=== PATIENT | male | born 1970 | race Caucasian/White ===

== ENCOUNTER 2022-04-28 19:48 | Inpatient (IN) | payer BC ==
--- NOTE | 2022-04-28 20:21 | ERPHSYRPT ---
- History of Present Illness Time Seen by Provider: 04/28/22 20:21 Source: patient Exam Limitations: no limitations Physician History: This is a 52-year-old left-handed white male who was wrestling with one of his children 2 and half weeks ago and there was definitely some right elbow rug burn wall slater while wrestling. Over the last 2 and half weeks the symptoms of redness swelling and tenderness have increased. In the last for 5 days it increased even to a greater extent and patient sought medical evaluation in an outpatient clinic. Patient was started on Bactrim DS yesterday. He is taken a total of 3 oral doses of Bactrim DS. Despite that treatment, the redness, swelling and tenderness is worsening. Patient has a history of arthritis, DJD and gastroesophageal reflux disease. Timing/Duration: week(s) (2-1/2 weeks) Quality: painful Severity: moderate Location: extremities (Right elbow) Possible Causes: other (Cellulitis) Allergies/Adverse Reactions: No Known Drug Allergies Allergy (Verified 04/28/22 20:23) Home Medications: Tamsulosin HCl 0.4 mg [Flomax 0.4 MG] 0.4 mg PO HS 08/31/15 [History] Gabapentin 600 mg PO HS 04/28/22 [History] Ibuprofen 600 mg PO TID 04/28/22 [History] Sulfamethoxazole/Trimethoprim [Sulfamethoxazole-Tmp Ds Tablet] 1 each PO Q12H 04/28/22 [History] Travel Risk - International Travel Have you traveled outside of the country in past 3 weeks: No - Coronavirus Screening Are you exhibiting any of the following symptoms?: No Close contact with a COVID-19 positive Pt in past 14-21 Days: No - Review of Systems Constitutional: Fever (Low-grade fever) Eyes: No Symptoms Ears, Nose, & Throat: No Symptoms Respiratory: No Symptoms Cardiac: No Symptoms Abdominal/Gastrointestinal: No Symptoms Genitourinary Symptoms: No Symptoms Musculoskeletal: No Symptoms Skin: Cellulitis (Right elbow) Neurological: No Symptoms Psychological: No Symptoms Endocrine: No Symptoms Hematologic/Lymphatic: No Symptoms Immunological/Allergic: No Symptoms All Other Systems: Reviewed and Negative - Past Medical History Pertinent Past Medical History: Yes Neurological History: No Pertinent History ENT History: No Pertinent History Cardiac History: No Pertinent History Respiratory History: No Pertinent History Endocrine Medical History: No Pertinent History Musculoskeletal History: Arthritis, Degenerative Disk Disease GI Medical History: GERD History: No Pertinent History Psycho-Social History: No Pertinent History Male Reproductive Disorders: Prostate Problems Other Medical History: pt reports he was kicked by a horse in the left side 30 years ago and damaged his left kidney has not been aware of any [facility] problems - Past Surgical History Past Surgical History: Yes Neuro Surgical History: No Pertinent History Cardiac: No Pertinent History Respiratory: No Pertinent History Gastrointestinal: No Pertinent History Genitourinary: No Pertinent History Musculoskeletal: No Pertinent History Male Surgical History: No Pertinent History Other Surgical History: COLONOSCOPY - Social History Smoking Status: Former smoker Exposure to second hand smoke: No Drug Use: none - Nursing Vital Signs Nursing Vital Signs: Initial Vital Signs Temperature 99.4 F 04/28/22 20:07 Pulse Rate 111 H 04/28/22 20:07 Respiratory Rate 20 04/28/22 20:07 Blood Pressure 121/81 04/28/22 20:07 O2 Sat by Pulse Oximetry 97 04/28/22 20:07 Pain Scale Pain Intensity 10 - Physical Exam General Appearance: no apparent distress, alert, anxiety Eye Exam: PERRL/EOMI, eyes nml inspection Ears, Nose, Throat Exam: normal ENT inspection, moist mucous membranes Neck Exam: normal inspection, non-tender, supple, full range of motion Respiratory Exam: airway intact, No chest tenderness, No respiratory distress Cardiovascular Exam: tachycardia Gastrointestinal/Abdomen Exam: No tenderness Rectal Exam: not done Back Exam: normal inspection, normal range of motion, No CVA tenderness, No vertebral tenderness Extremity Exam: inflammation, limited range of motion, swelling (Right elbow), tenderness (Right elbow right elbow), other (There is proximal streaking of redness proximally. 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, normal mood/affect, nml cerebellar function, nml station & gait, sensation nml Skin Exam: dry, other (Cellulitis right elbow) Lymphatic Exam: adenopathy, axilla node tender (R) SpO2 Interpretation: normal O2 Delivery: Room Air - Course Nursing assessment & vital signs reviewed: Yes Ordered Tests: Active Orders 24 hr Category Date Time Status IV Insertion STAT Care 04/28/22 20:46 Active BLOOD CULTURE Stat Lab 04/28/22 21:02 Received CBC W DIFF Stat Lab 04/28/22 20:56 Completed CMP Stat Lab 04/28/22 20:56 Completed CULTURE,WOUND Stat Lab 04/28/22 20:21 Received Lactic Acid Stat Lab 04/28/22 20:53 Completed Transfer Order Routine Transfer 04/28/22 Ordered Medication Summary Generic Name Dose Route Start Last Admin Trade Name Greg PRN Reason Stop Dose Admin Sodium Chloride 1,000 mls @ 999 mls/hr 04/28/22 20:46 04/28/22 21:03 Sodium Chloride 0.9% 1000 Ml IV 04/28/22 21:46 999 mls/hr .Q1H1M STA Administration Levofloxacin/Dextrose 750 mg in 150 mls @ 100 mls/hr 04/28/22 20:46 04/28/22 21:05 Levofloxacin 750mg/150ml D5w IV 04/28/22 22:15 100 mls/hr STAT STA 100 mls/hr Administration Discontinued Medications Generic Name Dose Route Start Last Admin Trade Name Greg PRN Reason Stop Dose Admin Hydromorphone HCl 1 mg 04/28/22 20:46 04/28/22 21:05 Hydromorphone 1 Mg/1ml Inj 1 Mg/Ml Syringe IV 04/28/22 20:47 1 mg STAT ONE Administration Hydromorphone HCl Confirm 04/28/22 20:59 Hydromorphone 1 Mg/1ml Inj 1 Mg/Ml Syringe Administered 04/28/22 21:00 Dose 1 mg .ROUTE .STK-MED ONE Sodium Chloride Confirm 04/28/22 20:59 Sodium Chloride 0.9% 1000 Ml Administered 04/28/22 21:00 Dose 1,000 mls @ ud .ROUTE .STK-MED ONE Levofloxacin/Dextrose Confirm 04/28/22 20:59 Levofloxacin 750mg/150ml D5w Administered 04/28/22 21:00 Dose 750 mg in 150 mls @ ud IV .STK-MED ONE Ondansetron HCl 4 mg 04/28/22 20:46 04/28/22 21:02 Ondansetron Hcl 4 Mg/2 Ml Vial IV 04/28/22 20:47 4 mg STAT STA Administration Ondansetron HCl 4 mg 04/28/22 20:46 04/28/22 20:50 Ondansetron Hcl 4 Mg/2 Ml Vial IV 04/28/22 20:47 Not Given STAT ONE Ondansetron HCl Confirm 04/28/22 20:58 Ondansetron Hcl 4 Mg/2 Ml Vial Administered 04/28/22 20:59 Dose 4 mg .ROUTE .STK-MED ONE Lab/Rad Data: Laboratory Result Diagrams 04/28/22 20:56 04/28/22 20:56 Laboratory Results 04/28/22 04/28/22 04/28/22 Range/Units 20:56 20:56 20:53 WBC 13.3 H (4.0-10.5) x10^3/uL RBC 4.55 (4.1-5.6) x10^6/uL Hgb 13.5 (12.5-18.0) g/dL Hct 40.3 L (42-50) % MCV 88.6 (78-100) fL MCH 29.7 (26-32) pg MCHC 33.5 (32-36) g/dL RDW 13.1 (11.5-14.0) % Plt Count 359 (150-450) x10^3/uL MPV 8.6 (7.5-11.0) fL Gran % 70.8 H (36.0-66.0) % Immature Gran % (Auto) 0.7 H (0.00-0.4) % Nucleat RBC Rel Count 0.0 (0.00-0.1) % Eos # (Auto) 0.25 (0-0.5) x10^3/uL Immature Gran # (Auto) 0.09 H (0.00-0.03) x10^3u/L Absolute Lymphs (auto) 2.35 (1.0-4.6) x10^3/uL Absolute Monos (auto) 1.19 (0.0-1.3) x10^3/uL Absolute Nucleated RBC 0.00 (0.00-0.01) x10^3u/L Lymphocytes % 17.6 L (24.0-44.0) % Monocytes % 8.9 (0.0-12.0) % Eosinophils % 1.9 (0.00-5.0) % Basophils % 0.1 (0.0-0.4) % Absolute Granulocytes 9.44 H (1.4-6.9) x10^3/uL Basophils # 0.02 (0-0.4) x10^3/uL Sodium 138 (137-145) mmol/L Potassium 4.0 (3.5-5.1) mmol/L Chloride 108 H (98-107) mmol/L Carbon Dioxide 21 L (22-30) mmol/L Anion Gap 12.8 (5-15) MEQ/L BUN 16 (9-20) mg/dL Creatinine 0.88 (0.66-1.25) mg/dL Estimated GFR > 60.0 ML/MIN Glucose 134 H (74-106) mg/dL Lactic Acid 1.0 (0.4-2.0) Calcium 8.7 (8.4-10.2) mg/dL Total Bilirubin 0.50 (0.2-1.3) mg/dL AST 31 (17-59) U/L ALT 27 (0-50) U/L Alkaline Phosphatase 79 (38-126) U/L Serum Total Protein 6.9 (6.3-8.2) g/dL Albumin 4.0 (3.5-5.0) g/dL - Progress Progress: unchanged Progress Note: 04/28/22 21:02 Medical decision making: This patient obviously has failed outpatient medical therapy. He has been on antibiotics. His symptoms are worsening. Patient needs intravenous access with intravenous antibiotics. The plan is to place him in observation and provide him with pain control, intravenous antibiotics and obtain a general surgical consultation. Once we have his laboratory results return, we will contact Dr. Aguayo Discussed with .: Bronson Counseled pt/family regarding: lab results, diagnosis, need for follow-up, rad results - Departure Departure Disposition: Observation Clinical Impression: Cellulitis of right elbow Condition: Stable Critical Care Time: No Referrals: SALINA GARCIAS [Primary Care Provider] - Follow up/PCP as directed
[2022-04-28] MEDS ORDERED: LEVOFLOXACIN 750MG/150ML D5W 750 MG/150 ML BAG IV STA (20:46)
[2022-04-28] MEDS ORDERED: Zofran 4 MG/2 ML VIAL IV STA (20:46)
[2022-04-28] MEDS ORDERED: Sodium Chloride 0.9% 1000 ML 1,000 ML IV STA (20:46)
[2022-04-28] MEDS ORDERED: Hydromorphone 1 mg/ml Injection IV ONE (20:46)
[2022-04-28] MEDS ORDERED: Zofran 4 MG/2 ML VIAL IV ONE (20:46)
[2022-04-28] MEDS ORDERED: Zofran 4 MG/2 ML VIAL ONE (20:58)
[2022-04-28 20:59] LABS: Absolute Neutrophil Ct (ANC) 9.44 x10^3/uL (1.4-6.9); Basophil (Absolute #) 0.02 x10^3/uL (0-0.4); Eosinophil % 1.9 % (0.00-5.0); Eosinophil (Absolute #) 0.25 x10^3/uL (0-0.5); Hematocrit 40.3 % (42-50); Hemoglobin 13.5 g/dL (12.5-18.0); Lymphocyte (Absolute #) 2.35 x10^3/uL (1.0-4.6); Lymphocytes % 17.6 % (24.0-44.0); Mean Cell Volume 88.6 fL (78-100); Mean Corpuscular Hemoglobin 29.7 pg (26-32); Mean Corpuscular Hgb Concent. 33.5 g/dL (32-36); Mean Platelet Volume 8.6 fL (7.5-11.0); Monocyte (Absolute #) 1.19 x10^3/uL (0.0-1.3); Monocytes % 8.9 % (0.0-12.0); Neutrophil % 70.8 % (36.0-66.0); Platelet Count 359 x10^3/uL (150-450); Red Blood Count 4.55 x10^6/uL (4.1-5.6); Red Cell Distribution Width 13.1 % (11.5-14.0); White Blood Count 13.3 x10^3/uL (4.0-10.5)
[2022-04-28] MEDS ORDERED: Hydromorphone 1 mg/ml Injection ONE (20:59)
[2022-04-28] MEDS ORDERED: LEVOFLOXACIN 750MG/150ML D5W 750 MG/150 ML BAG IV ONE (20:59)
[2022-04-28] MEDS ORDERED: Sodium Chloride 0.9% 1000 ML 1,000 ML ONE (20:59)
[2022-04-28 21:13] LABS: ALKALINE PHOSPHATASE 79 U/L (38-126); ANION GAP 12.8 MEQ/L (5-15); BLOOD UREA NITROGEN 16 mg/dL (9-20); CHLORIDE 108 mmol/L (98-107); Calcium 8.7 mg/dL (8.4-10.2); Carbon Dioxide 21 mmol/L (22-30); Creatinine 1 0.88 mg/dL (0.66-1.25); EST GLOMERULAR FILTRATION RATE > 60.0 ML/MIN; Glucose 134 mg/dL (74-106); SGOT/AST 31 U/L (17-59); SGPT/ALT 27 U/L (0-50); SODIUM 138 mmol/L (137-145); Total Protein 6.9 g/dL (6.3-8.2)
[2022-04-28 21:43] LABS: INFLUENZA A NEGATIVE (NEGATIVE); INFLUENZA B NEGATIVE (NEGATIVE); RESPIRATORY SYNCTIAL VIRUS NEGATIVE (Negative); SARS-CoV-2 Xpert Express NEGATIVE (NEGATIVE)
[2022-04-28] MEDS ORDERED: Zofran 4 MG/2 ML VIAL IV PRN (22:27)
[2022-04-28] MEDS ORDERED: TYLENOL 325 MG PO PRN (22:27)
[2022-04-28] MEDS: Sodium Chloride 0.9% 1000 ML 1,000 ML IV SCH (23:20)
[2022-04-29] MEDS ORDERED: NEURONTIN ONE (00:24)
[2022-04-29] MEDS ORDERED: Flomax 0.4 MG ONE (00:25)
[2022-04-29] MEDS: NEURONTIN PO SCH ×2 (00:26→22:44)
[2022-04-29] MEDS: Flomax 0.4 MG PO SCH ×2 (00:27→22:43)
[2022-04-29 06:46] LABS: Absolute Neutrophil Ct (ANC) 8.38 x10^3/uL (1.4-6.9); Basophil (Absolute #) 0.02 x10^3/uL (0-0.4); Eosinophil % 2.2 % (0.00-5.0); Eosinophil (Absolute #) 0.27 x10^3/uL (0-0.5); Hematocrit 39.6 % (42-50); Hemoglobin 13.2 g/dL (12.5-18.0); Lymphocyte (Absolute #) 2.36 x10^3/uL (1.0-4.6); Mean Cell Volume 88.8 fL (78-100); Mean Corpuscular Hemoglobin 29.6 pg (26-32); Mean Corpuscular Hgb Concent. 33.3 g/dL (32-36); Monocyte (Absolute #) 1.31 x10^3/uL (0.0-1.3); Monocytes % 10.6 % (0.0-12.0); Neutrophil % 67.5 % (36.0-66.0); Platelet Count 336 x10^3/uL (150-450); Red Blood Count 4.46 x10^6/uL (4.1-5.6); Red Cell Distribution Width 13.3 % (11.5-14.0); White Blood Count 12.4 x10^3/uL (4.0-10.5)
[2022-04-29 06:53] LABS: ALBUMIN 3.4 g/dL (3.5-5.0); ALKALINE PHOSPHATASE 78 U/L (38-126); ANION GAP 11.2 MEQ/L (5-15); BLOOD UREA NITROGEN 13 mg/dL (9-20); CHLORIDE 109 mmol/L (98-107); Calcium 8.2 mg/dL (8.4-10.2); Carbon Dioxide 20 mmol/L (22-30); Creatinine 1 0.74 mg/dL (0.66-1.25); EST GLOMERULAR FILTRATION RATE > 60.0 ML/MIN; Glucose 116 mg/dL (74-106); SGOT/AST 32 U/L (17-59); SGPT/ALT 30 U/L (0-50); SODIUM 136 mmol/L (137-145); Total Protein 6.3 g/dL (6.3-8.2)
[2022-04-29] MEDS: Hydromorphone 1 mg/ml Injection IV PRN (08:44)
[2022-04-29] MEDS: MOTRIN 600 MG PO SCH ×3 (08:45→22:44)
[2022-04-29] MEDS: Sodium Chloride 0.9% 1000 ML 1,000 ML IV SCH ×2 (08:47→18:23)
--- NOTE | 2022-04-29 08:48 | PCM.HP ---
History of Present Illness - Chief Complaint Chief Complaint: swelling of right elbow for 1 week History of Present Illness: is a 52 year old male.left-handed white male who was wrestling with one of his children 2 and half weeks ago and there was definitely some right elbow rug burn wall slater while wrestling. Over the last 2 and half weeks the symptoms of redness swelling and tenderness have increased. In the last for 5 days it increased even to a greater extent and patient sought medical evaluation in an outpatient clinic. Patient was started on Bactrim DS yesterday. He is taken a total of 3 oral doses of Bactrim DS. Despite that treatment, the redness, swelling and tenderness is worsening. Patient has a history of arthritis, DJD and gastroesophageal reflux disease. - Review of Systems Constitutional: No Fever, No Chills Eyes: No Symptoms Ears, Nose, & Throat: No Symptoms Respiratory: No Cough, No Short Of Breath Cardiac: No Chest Pain, No Edema, No Syncope Abdominal/Gastrointestinal: No Abdominal Pain, No Nausea, No Vomiting, No Diarrhea Genitourinary Symptoms: No Dysuria Musculoskeletal: Joint Redness (right elbow), Joint Swelling, No Back Pain, No Neck Pain Skin: Cellulitis (right elbow), No Rash Neurological: No Dizziness, No Focal Weakness, No Sensory Changes Psychological: No Symptoms Endocrine: No Symptoms Hematologic/Lymphatic: No Symptoms Immunological/Allergic: No Symptoms Medications & Allergies Home Medications: Home Medication List Tamsulosin HCl 0.4 mg [Flomax 0.4 MG] 0.4 mg PO HS 08/31/15 [History Confirmed 04/28/22] Gabapentin 600 mg PO HS 04/28/22 [History Confirmed 04/28/22] Ibuprofen 600 mg PO TID 04/28/22 [History Confirmed 04/28/22] Sulfamethoxazole/Trimethoprim [Sulfamethoxazole-Tmp Ds Tablet] 1 each PO Q12H 04/28/22 [History Confirmed 04/28/22] Allergies/Adverse Reactions: Allergies Allergy/AdvReac Type Severity Reaction Status Date / Time No Known Drug Allergies Allergy Verified 04/28/22 20:23 - Past Medical History Past Medical History: Yes Neurological History: No Pertinent History ENT History: No Pertinent History Cardiac History: Hypertension Respiratory History: No Pertinent History Endocrine Medical History: No Pertinent History Musculoskelatal History: Arthritis, Degenerative Disk Disease GI Medical History: GERD History: No Pertinent History Pyscho-Social History: No Pertinent History Male Reproductive Disorders: Prostate Problems Comment: pt reports he was kicked by a horse in the left side 30 years ago and damaged his left kidney has not been aware of any shelter problems - Past Surgical History Past Surgical History: Yes Neuro Surgical History: No Pertinent History Cardiac History: No Pertinent History Respiratory Surgery: No Pertinent History GI Surgical History: No Pertinent History, Cholecystectomy Genitourinary Surgical Hx: No Pertinent History Musculskeletal Surgical Hx: Orthopedic Surgery Male Surgical History: No Pertinent History Other Surgical History: COLONOSCOPY , broken collar bone years ago - Social History Smoking Status: Never smoker Exposure to second hand smoke: No Alcohol: None Drug Use: none - Physical Exam Vital Signs: Vital Signs - 24 hr Temp Pulse Resp BP Pulse Ox 04/29/22 07:05 98.0 F 93 H 16 146/74 97 04/29/22 04:00 98.2 F 100 H 18 130/77 97 04/28/22 22:56 98.6 F 108 H 18 135/74 98 04/28/22 22:34 98.3 F 113 H 18 125/74 97 04/28/22 20:07 99.4 F 111 H 20 121/81 97 General Appearance: no apparent distress, alert Neurologic Exam: alert, oriented x 3, cooperative, normal mood/affect, nml cerebellar function, nml station & gait, sensation nml, No motor deficits Eye Exam: PERRL/EOMI, eyes nml inspection Ears, Nose, Throat Exam: normal ENT inspection, TMs normal, pharynx normal, moist mucous membranes Neck Exam: normal inspection, non-tender, supple, full range of motion Respiratory Exam: normal breath sounds, lungs clear, No respiratory distress Cardiovascular Exam: regular rate/rhythm, normal heart sounds, normal peripheral pulses Gastrointestinal/Abdomen Exam: soft, normal bowel sounds, No tenderness, No mass Back Exam: normal inspection, normal range of motion, No CVA tenderness, No vertebral tenderness Extremity Exam: normal inspection, normal range of motion, pelvis stable, infl ammation (right elbow), swelling Skin Exam: normal color, warm, dry, No rash Lymphatic Exam: No adenopathy Results - Labs Lab/Micro Results: Lab Results-Last 24 Hours 09/03/22 09/03/22 09/03/22 Range/Units 20:53 20:56 20:56 WBC 13.3 H (4.0-10.5) x10^3/uL RBC 4.55 (4.1-5.6) x10^6/uL Hgb 13.5 (12.5-18.0) g/dL Hct 40.3 L (42-50) % MCV 88.6 (78-100) fL MCH 29.7 (26-32) pg MCHC 33.5 (32-36) g/dL RDW 13.1 (11.5-14.0) % Plt Count 359 (150-450) x10^3/uL MPV 8.6 (7.5-11.0) fL Gran % 70.8 H (36.0-66.0) % Immature Gran % (Auto) 0.7 H (0.00-0.4) % Nucleat RBC Rel Count 0.0 (0.00-0.1) % Eos # (Auto) 0.25 (0-0.5) x10^3/uL Immature Gran # (Auto) 0.09 H (0.00-0.03) x10^3u/L Absolute Lymphs (auto) 2.35 (1.0-4.6) x10^3/uL Absolute Monos (auto) 1.19 (0.0-1.3) x10^3/uL Absolute Nucleated RBC 0.00 (0.00-0.01) x10^3u/L Lymphocytes % 17.6 L (24.0-44.0) % Monocytes % 8.9 (0.0-12.0) % Eosinophils % 1.9 (0.00-5.0) % Basophils % 0.1 (0.0-0.4) % Absolute Granulocytes 9.44 H (1.4-6.9) x10^3/uL Basophils # 0.02 (0-0.4) x10^3/uL Sodium 138 (137-145) mmol/L Potassium 4.0 (3.5-5.1) mmol/L Chloride 108 H (98-107) mmol/L Carbon Dioxide 21 L (22-30) mmol/L Anion Gap 12.8 (5-15) MEQ/L BUN 16 (9-20) mg/dL Creatinine 0.88 (0.66-1.25) mg/dL Estimated GFR > 60.0 ML/MIN Glucose 134 H (74-106) mg/dL Lactic Acid 1.0 (0.4-2.0) Calcium 8.7 (8.4-10.2) mg/dL Total Bilirubin 0.50 (0.2-1.3) mg/dL AST 31 (17-59) U/L ALT 27 (0-50) U/L Alkaline Phosphatase 79 (38-126) U/L Serum Total Protein 6.9 (6.3-8.2) g/dL Albumin 4.0 (3.5-5.0) g/dL Influenza Type A Ag (NEGATIVE) Influenza Type B Ag (NEGATIVE) RSV (PCR) (Negative) SARS-CoV-2 (PCR) (NEGATIVE) 04/28/22 04/29/22 04/29/22 Range/Units 20:57 05:47 05:47 WBC 12.4 H (4.0-10.5) x10^3/uL RBC 4.46 (4.1-5.6) x10^6/uL Hgb 13.2 (12.5-18.0) g/dL Hct 39.6 L (42-50) % MCV 88.8 (78-100) fL MCH 29.6 (26-32) pg MCHC 33.3 (32-36) g/dL RDW 13.3 (11.5-14.0) % Plt Count 336 (150-450) x10^3/uL MPV 9.0 (7.5-11.0) fL Gran % 67.5 H (36.0-66.0) % Immature Gran % (Auto) 0.5 H (0.00-0.4) % Nucleat RBC Rel Count 0.0 (0.00-0.1) % Eos # (Auto) 0.27 (0-0.5) x10^3/uL Immature Gran # (Auto) 0.06 H (0.00-0.03) x10^3u/L Absolute Lymphs (auto) 2.36 (1.0-4.6) x10^3/uL Absolute Monos (auto) 1.31 H (0.0-1.3) x10^3/uL Absolute Nucleated RBC 0.00 (0.00-0.01) x10^3u/L Lymphocytes % 19.0 L (24.0-44.0) % Monocytes % 10.6 (0.0-12.0) % Eosinophils % 2.2 (0.00-5.0) % Basophils % 0.2 (0.0-0.4) % Absolute Granulocytes 8.38 H (1.4-6.9) x10^3/uL Basophils # 0.02 (0-0.4) x10^3/uL Sodium 136 L (137-145) mmol/L Potassium 4.0 (3.5-5.1) mmol/L Chloride 109 H (98-107) mmol/L Carbon Dioxide 20 L (22-30) mmol/L Anion Gap 11.2 (5-15) MEQ/L BUN 13 (9-20) mg/dL Creatinine 0.74 (0.66-1.25) mg/dL Estimated GFR > 60.0 ML/MIN Glucose 116 H (74-106) mg/dL Lactic Acid (0.4-2.0) Calcium 8.2 L (8.4-10.2) mg/dL Total Bilirubin 0.60 (0.2-1.3) mg/dL AST 32 (17-59) U/L ALT 30 (0-50) U/L Alkaline Phosphatase 78 (38-126) U/L Serum Total Protein 6.3 (6.3-8.2) g/dL Albumin 3.4 L (3.5-5.0) g/dL Influenza Type A Ag NEGATIVE (NEGATIVE) Influenza Type B Ag NEGATIVE (NEGATIVE) RSV (PCR) NEGATIVE (Negative) SARS-CoV-2 (PCR) NEGATIVE (NEGATIVE) Assessment/Plan (1) Cellulitis of right elbow Current Visit: Yes Status: Acute Assessment & Plan: Chief Complaint Diagnosis Cellulitis right elbow Allergies Allergy/AdvReac Type Severity Reaction Status Date / Time No Known Drug Allergies Allergy Verified 04/28/22 20:23 Vital Signs (Last 24 hours) Temp Pulse Resp BP Pulse Ox 04/29/22 07:05 98.0 F 93 H 16 146/74 97 04/29/22 04:00 98.2 F 100 H 18 130/77 97 04/28/22 22:56 98.6 F 108 H 18 135/74 98 04/28/22 22:34 98.3 F 113 H 18 125/74 97 04/28/22 20:07 99.4 F 111 H 20 121/81 97 Home Medications Medication Instructions Recorded Confirmed Last Taken Type Gabapentin 600 mg PO HS 04/28/22 04/28/22 Unknown History Ibuprofen 600 mg PO TID 04/28/22 04/28/22 Unknown History Sulfamethoxazole/Trimethoprim 1 each PO Q12H 04/28/22 04/28/22 Unknown History [Sulfamethoxazole-Tmp Ds Tablet] Current Medications Generic Name Dose Route Start Last Admin Trade Name Freq PRN Reason Stop Dose Admin Acetaminophen 650 mg 04/28/22 22:27 Acetaminophen 325 Mg Tablet PO 05/28/22 22:26 Q4H PRN PRN PAIN, FEVER, HEADACHE Gabapentin 600 mg 04/29/22 22:00 04/29/22 00:26 Gabapentin 300 Mg Capsule PO 05/29/22 21:59 600 mg HS ROSE MARY Administration Hydromorphone HCl 1 mg 04/28/22 22:27 04/29/22 08:44 Hydromorphone 1 Mg/1ml Inj 1 Mg/Ml Syringe IV 05/03/22 22:26 1 mg Q4H PRN PRN Administration PAIN Sodium Chloride 1,000 mls @ 100 mls/hr 04/28/22 22:27 04/28/22 23:20 Sodium Chloride 0.9% 1000 Ml IV 05/28/22 22:26 100 mls/hr .Q10H ROSE MARY Administration Levofloxacin/Dextrose 500 mg in 100 mls @ 100 mls/hr 04/29/22 22:00 Levofloxacin 500mg/100ml D5w IV 05/29/22 21:59 Q24H22 ROSE MARY Ibuprofen 600 mg 04/29/22 10:00 04/29/22 08:45 Ibuprofen 600 Mg Tablet PO 05/29/22 09:59 600 mg TID ROSE MARY Administration Ondansetron HCl 4 mg 04/28/22 22:27 Ondansetron Hcl 4 Mg/2 Ml Vial IV 05/28/22 22:26 Q6H PRN PRN NAUSEA/VOMITING Tamsulosin HCl 0.4 mg 04/29/22 22:00 04/29/22 00:27 Tamsulosin Hcl 0.4 Mg Cap PO 05/29/22 21:59 0.4 mg HS ROSE MARY Administration Discontinued Medications Generic Name Dose Route Start Last Admin Trade Name Greg PRN Reason Stop Dose Admin Gabapentin Confirm 04/29/22 00:24 Gabapentin 300 Mg Capsule Administered 04/29/22 00:25 Dose 600 mg .ROUTE .STK-MED ONE Hydromorphone HCl 1 mg 04/28/22 20:46 04/28/22 21:05 Hydromorphone 1 Mg/1ml Inj 1 Mg/Ml Syringe IV 04/28/22 20:47 1 mg STAT ONE Administration Hydromorphone HCl Confirm 04/28/22 20:59 Hydromorphone 1 Mg/1ml Inj 1 Mg/Ml Syringe Administered 04/28/22 21:00 Dose 1 mg .ROUTE .STK-MED ONE Sodium Chloride 1,000 mls @ 999 mls/hr 04/28/22 20:46 04/28/22 21:03 Sodium Chloride 0.9% 1000 Ml IV 04/28/22 21:46 999 mls/hr .Q1H1M STA Administration Levofloxacin/Dextrose 750 mg in 150 mls @ 100 mls/hr 04/28/22 20:46 04/28/22 21:05 Levofloxacin 750mg/150ml D5w IV 04/28/22 22:15 100 mls/hr STAT STA 100 mls/hr Administration Sodium Chloride Confirm 04/28/22 20:59 Sodium Chloride 0.9% 1000 Ml Administered 04/28/22 21:00 Dose 1,000 mls @ ud .ROUTE .STK-MED ONE Levofloxacin/Dextrose Confirm 04/28/22 20:59 Levofloxacin 750mg/150ml D5w Administered 04/28/22 21:00 Dose 750 mg in 150 mls @ ud IV .STK-MED ONE Ondansetron HCl 4 mg 04/28/22 20:46 04/28/22 21:02 Ondansetron Hcl 4 Mg/2 Ml Vial IV 04/28/22 20:47 4 mg STAT STA Administration Ondansetron HCl 4 mg 04/28/22 20:46 04/28/22 20:50 Ondansetron Hcl 4 Mg/2 Ml Vial IV 04/28/22 20:47 Not Given STAT ONE Ondansetron HCl Confirm 04/28/22 20:58 Ondansetron Hcl 4 Mg/2 Ml Vial Administered 04/28/22 20:59 Dose 4 mg .ROUTE .STK-MED ONE Tamsulosin HCl Confirm 04/29/22 00:25 Tamsulosin Hcl 0.4 Mg Cap Administered 04/29/22 00:26 Dose 0.4 mg .ROUTE .STK-MED ONE Intake & Output (Last 24 hours) 04/26/22 04/27/22 04/28/22 04/29/22 11:59 11:59 11:59 11:59 Intake Total 586 Balance 586 Weight 103.3 kg Microbiology Results (Last 24 hours) 04/28/22 21:02 Blood Blood Culture Gram Stain - Pending 04/28/22 21:02 Blood Blood Culture - Pending 04/28/22 20:56 Blood Blood Culture Gram Stain - Pending 04/28/22 20:56 Blood Blood Culture - Pending 04/28/22 20:21 Elbow - Right Wound Culture - Pending Laboratory Results (Last 24 hours) 04/29/22 04/29/22 04/28/22 05:47 05:47 20:57 WBC 12.4 H RBC 4.46 Hgb 13.2 Hct 39.6 L MCV 88.8 MCH 29.6 MCHC 33.3 RDW 13.3 Plt Count 336 MPV 9.0 Gran % 67.5 H Immature Gran % (Auto) 0.5 H Nucleat RBC Rel Count 0.0 Eos # (Auto) 0.27 Immature Gran # (Auto) 0.06 H Absolute Lymphs (auto) 2.36 Absolute Monos (auto) 1.31 H Absolute Nucleated RBC 0.00 Lymphocytes % 19.0 L Monocytes % 10.6 Eosinophils % 2.2 Basophils % 0.2 Absolute Granulocytes 8.38 H Basophils # 0.02 Sodium 136 L Potassium 4.0 Chloride 109 H Carbon Dioxide 20 L Anion Gap 11.2 BUN 13 Creatinine 0.74 Estimated GFR > 60.0 Glucose 116 H Lactic Acid Calcium 8.2 L Total Bilirubin 0.60 AST 32 ALT 30 Alkaline Phosphatase 78 Serum Total Protein 6.3 Albumin 3.4 L Influenza Type A Ag NEGATIVE Influenza Type B Ag NEGATIVE RSV (PCR) NEGATIVE SARS-CoV-2 (PCR) NEGATIVE 04/28/22 04/28/22 04/28/22 20:56 20:56 20:53 WBC 13.3 H RBC 4.55 Hgb 13.5 Hct 40.3 L MCV 88.6 MCH 29.7 MCHC 33.5 RDW 13.1 Plt Count 359 MPV 8.6 Gran % 70.8 H Immature Gran % (Auto) 0.7 H Nucleat RBC Rel Count 0.0 Eos # (Auto) 0.25 Immature Gran # (Auto) 0.09 H Absolute Lymphs (auto) 2.35 Absolute Monos (auto) 1.19 Absolute Nucleated RBC 0.00 Lymphocytes % 17.6 L Monocytes % 8.9 Eosinophils % 1.9 Basophils % 0.1 Absolute Granulocytes 9.44 H Basophils # 0.02 Sodium 138 Potassium 4.0 Chloride 108 H Carbon Dioxide 21 L Anion Gap 12.8 BUN 16 Creatinine 0.88 Estimated GFR > 60.0 Glucose 134 H Lactic Acid 1.0 Calcium 8.7 Total Bilirubin 0.50 AST 31 ALT 27 Alkaline Phosphatase 79 Serum Total Protein 6.9 Albumin 4.0 Influenza Type A Ag Influenza Type B Ag RSV (PCR) SARS-CoV-2 (PCR) Orders (Last 24 hours) Category Date Time Status Up Ad Latia TOLERATED Activity 04/28/22 22:27 Active Code Status Order ROUTINE Care 04/28/22 22:27 Active IV Insertion STAT Care 04/28/22 20:[address] in Observation ROUTINE Care 04/28/22 22:27 Active Consult Surgery ROUTINE Cons 04/29/22 08:17 Active House Regular Diet Diet 04/29/22 Breakfast Active BLOOD CULTURE Stat Lab 04/28/22 21:02 Received CBC W DIFF AM.LAB Lab 04/29/22 05:47 Completed CBC W DIFF Stat Lab 04/28/22 20:56 Completed CMP AM.LAB Lab 04/29/22 05:47 Completed CMP Stat Lab 04/28/22 20:56 Completed COVID/FLU/RSV Panel Stat Lab 04/28/22 20:57 Completed CULTURE,WOUND Stat Lab 04/28/22 20:21 Received Lactic Acid Stat Lab 04/28/22 20:53 Completed Acetaminophen 325 mg [Tylenol 325 mg] Med 04/28/22 22:27 Active 650 mg PO Q4H PRN PRN Gabapentin [Neurontin ] Med 04/29/22 00:24 Discontinued 600 mg .ROUTE .STK-MED ONE Gabapentin [Neurontin ] Med 04/29/22 22:00 Active 600 mg PO HS Hydromorphone 1 mg/1Ml Inj [Hydromorphone 1 mg/ml Med 04/28/22 20:59 Discontinued Injection] 1 mg .ROUTE .STK-MED ONE Hydromorphone 1 mg/1Ml Inj [Hydromorphone 1 mg/ml Med 04/28/22 22:27 Active Injection] 1 mg IV Q4H PRN PRN Hydromorphone 1 mg/1Ml Inj [Hydromorphone 1 mg/ml Med 04/28/22 20:46 Discontinued Injection] 1 mg IV STAT ONE Ibuprofen 600 mg [Motrin 600 mg] Med 04/29/22 10:00 Active 600 mg PO TID Levofloxacin [Levofloxacin 500MG/100ML D5W] Med 04/29/22 22:00 Active 500 mg in 100 ml IV Q24H22 Levofloxacin [Levofloxacin 750Mg/150Ml D5w] Med 04/28/22 20:46 Discontinued 750 mg in 150 ml IV STAT Levofloxacin [Levofloxacin 750Mg/150Ml D5w] Med 04/28/22 20:59 Discontinued 750 mg in 150 ml IV UD NaCl 0.9% 1000 ml [Sodium Chloride 0.9% 1000 ML] 1,000 Med 04/28/22 20:59 Discontinued ml .ROUTE UD NaCl 0.9% 1000 ml [Sodium Chloride 0.9% 1000 ML] 1,000 Med 04/28/22 22:27 Active ml IV 100 mls/hr NaCl 0.9% 1000 ml [Sodium Chloride 0.9% 1000 ML] 1,000 Med 04/28/22 20:46 Discontinued ml IV 999 mls/hr Ondansetron HCl 4 mg/2 ml [Zofran 4 MG/2 ML VIAL] Med 04/28/22 20:58 Discontinued 4 mg .ROUTE .STK-MED ONE Ondansetron HCl 4 mg/2 ml [Zofran 4 MG/2 ML VIAL] Med 04/28/22 22:27 Active 4 mg IV Q6H PRN PRN Ondansetron HCl 4 mg/2 ml [Zofran 4 MG/2 ML VIAL] Med 04/28/22 20:46 Discontinued 4 mg IV STAT ONE Ondansetron HCl 4 mg/2 ml [Zofran 4 MG/2 ML VIAL] Med 04/28/22 20:46 Discontinued 4 mg IV STAT STA Tamsulosin HCl 0.4 mg [Flomax 0.4 MG] Med 04/29/22 00:25 Discontinued 0.4 mg .ROUTE .STK-MED ONE Tamsulosin HCl 0.4 mg [Flomax 0.4 MG] Med 04/29/22 22:00 Active 0.4 mg PO HS OT Screen per Nursing Assess ONCE OT 04/28/22 23:19 Active PT Screen per Nursing Assess ONCE PT 04/28/22 23:19 Active Pulse Oximetry ROUTINE RT 04/28/22 22:27 Completed Code(s): L03.113 - CELLULITIS OF RIGHT UPPER LIMB
[2022-04-29] MEDS: Levofloxacin 500MG/100ML D5W 500 MG/100 ML BAG IV SCH (22:43)
[2022-04-30] MEDS: Sodium Chloride 0.9% 1000 ML 1,000 ML IV SCH ×2 (05:26→15:30)
--- NOTE | 2022-04-30 09:23 | PCM.NOTE ---
Date and Time: 04/30/22921 Subjective Assessment: doing better - Review of Systems Constitutional: No Fever, No Chills Eyes: No Symptoms Ears, Nose, & Throat: No Symptoms Respiratory: No Cough, No Short Of Breath Cardiac: No Chest Pain, No Edema, No Syncope Abdominal/Gastrointestinal: No Abdominal Pain, No Nausea, No Vomiting, No Diarrhea Genitourinary Symptoms: No Dysuria Musculoskeletal: No Back Pain, No Neck Pain Skin: Cellulitis (right elbow), Induration, No Rash Neurological: No Dizziness, No Focal Weakness, No Sensory Changes Psychological: No Symptoms Endocrine: No Symptoms Hematologic/Lymphatic: No Symptoms Immunological/Allergic: No Symptoms Objective Exam General Appearance: no apparent distress, alert Neurologic Exam: alert, oriented x 3, cooperative, normal mood/affect, nml cerebellar function, sensation nml, No motor deficits Skin Exam: normal color, warm, dry Eye Exam: PERRL, EOMI, eyes nml inspection Ears, Nose, Throat Exam: normal ENT inspection, pharynx normal, moist mucous membranes Neck Exam: normal inspection, non-tender, supple, full range of motion Respiratory Exam: normal breath sounds, lungs clear, No respiratory distress Cardiovascular Exam: regular rate/rhythm, normal heart sounds Gastrointestinal/Abdomen Exam: soft, No tenderness, No mass Extremity Exam: normal inspection, normal range of motion, inflammation, joint swelling (right elbow), swelling, tenderness Back Exam: normal inspection, normal range of motion, No CVA tenderness, No vertebral tenderness Male Genitalia Exam: deferred Rectal Exam: deferred OBJECTIVE DATA Vital Signs: Vital Signs - 24 hr Temp Pulse Resp BP Pulse Ox 04/30/22 07:34 98.5 F 95 H 16 123/75 97 04/30/22 04:00 98.4 F 91 H 18 138/68 98 04/29/22 23:55 99.5 F 95 H 18 161/90 99 04/29/22 19:38 99.3 F 90 18 135/77 98 04/29/22 16:00 98.2 F 93 H 16 143/83 98 04/29/22 11:48 98.6 F 107 H 16 124/65 97 Pain Assessment - Last Documented Pain Intensity 0 Pain Scale Used 0-10 Pain Scale Intake and Output: Intake & Output 04/27/22 04/28/22 04/29/22 04/30/22 11:59 11:59 11:59 11:59 Intake Total 1166 4851 Balance 1166 4851 Weight 103.3 kg Assessment/Plan (1) Cellulitis of right elbow Current Visit: Yes Status: Acute Assessment & Plan: Chief Complaint Diagnosis swelling of right elbow for 1 week Allergies Allergy/AdvReac Type Severity Reaction Status Date / Time No Known Drug Allergies Allergy Verified 04/28/22 20:23 Vital Signs (Last 24 hours) Temp Pulse Resp BP Pulse Ox 04/30/22 07:34 98.5 F 95 H 16 123/75 97 04/30/22 04:00 98.4 F 91 H 18 138/68 98 04/29/22 23:55 99.5 F 95 H 18 161/90 99 04/29/22 19:38 99.3 F 90 18 135/77 98 04/29/22 16:00 98.2 F 93 H 16 143/83 98 04/29/22 11:48 98.6 F 107 H 16 124/65 97 Home Medications Medication Instructions Recorded Confirmed Last Taken Type Gabapentin 600 mg PO HS 04/28/22 04/28/22 Unknown History Ibuprofen 600 mg PO TID 04/28/22 04/28/22 Unknown History Sulfamethoxazole/Trimethoprim 1 each PO Q12H 04/28/22 04/28/22 Unknown History [Sulfamethoxazole-Tmp Ds Tablet] Current Medications Generic Name Dose Route Start Last Admin Trade Name Freq PRN Reason Stop Dose Admin Acetaminophen 650 mg 04/28/22 22:27 Acetaminophen 325 Mg Tablet PO 05/28/22 22:26 Q4H PRN PRN PAIN, FEVER, HEADACHE Gabapentin 600 mg 04/29/22 22:00 04/29/22 22:44 Gabapentin 300 Mg Capsule PO 05/29/22 21:59 600 mg HS ROSE MARY Administration Hydromorphone HCl 1 mg 04/28/22 22:27 04/29/22 08:44 Hydromorphone 1 Mg/1ml Inj 1 Mg/Ml Syringe IV 05/03/22 22:26 1 mg Q4H PRN PRN Administration PAIN Sodium Chloride 1,000 mls @ 100 mls/hr 04/28/22 22:27 04/30/22 05:26 Sodium Chloride 0.9% 1000 Ml IV 05/28/22 22:26 100 mls/hr .Q10H ROSE MARY Administration Levofloxacin/Dextrose 500 mg in 100 mls @ 100 mls/hr 04/29/22 22:00 04/29/22 22:43 Levofloxacin 500mg/100ml D5w IV 05/29/22 21:59 100 mls/hr Q24H22 ROSE MARY Administration Ibuprofen 600 mg 04/29/22 10:00 04/29/22 22:44 Ibuprofen 600 Mg Tablet PO 05/29/22 09:59 600 mg TID ROSE MARY Administration Ondansetron HCl 4 mg 04/28/22 22:27 Ondansetron Hcl 4 Mg/2 Ml Vial IV 05/28/22 22:26 Q6H PRN PRN NAUSEA/VOMITING Tamsulosin HCl 0.4 mg 04/29/22 22:00 04/29/22 22:43 Tamsulosin Hcl 0.4 Mg Cap PO 05/29/22 21:59 0.4 mg HS ROSE MARY Administration Discontinued Medications Generic Name Dose Route Start Last Admin Trade Name Freq PRN Reason Stop Dose Admin Gabapentin Confirm 04/29/22 00:24 Gabapentin 300 Mg Capsule Administered 04/29/22 00:25 Dose 600 mg .ROUTE .STK-MED ONE Hydromorphone HCl 1 mg 04/28/22 20:46 04/28/22 21:05 Hydromorphone 1 Mg/1ml Inj 1 Mg/Ml Syringe IV 04/28/22 20:47 1 mg STAT ONE Administration Hydromorphone HCl Confirm 04/28/22 20:59 Hydromorphone 1 Mg/1ml Inj 1 Mg/Ml Syringe Administered 04/28/22 21:00 Dose 1 mg .ROUTE .STK-MED ONE Sodium Chloride 1,000 mls @ 999 mls/hr 04/28/22 20:46 04/28/22 21:03 Sodium Chloride 0.9% 1000 Ml IV 04/28/22 21:46 999 mls/hr .Q1H1M STA Administration Levofloxacin/Dextrose 750 mg in 150 mls @ 100 mls/hr 04/28/22 20:46 04/28/22 21:05 Levofloxacin 750mg/150ml D5w IV 04/28/22 22:15 100 mls/hr STAT STA 100 mls/hr Administration Sodium Chloride Confirm 04/28/22 20:59 Sodium Chloride 0.9% 1000 Ml Administered 04/28/22 21:00 Dose 1,000 mls @ ud .ROUTE .STK-MED ONE Levofloxacin/Dextrose Confirm 04/28/22 20:59 Levofloxacin 750mg/150ml D5w Administered 04/28/22 21:00 Dose 750 mg in 150 mls @ ud IV .STK-MED ONE Ondansetron HCl 4 mg 04/28/22 20:46 04/28/22 21:02 Ondansetron Hcl 4 Mg/2 Ml Vial IV 04/28/22 20:47 4 mg STAT STA Administration Ondansetron HCl 4 mg 04/28/22 20:46 04/28/22 20:50 Ondansetron Hcl 4 Mg/2 Ml Vial IV 04/28/22 20:47 Not Given STAT ONE Ondansetron HCl Confirm 04/28/22 20:58 Ondansetron Hcl 4 Mg/2 Ml Vial Administered 04/28/22 20:59 Dose 4 mg .ROUTE .STK-MED ONE Tamsulosin HCl Confirm 04/29/22 00:25 Tamsulosin Hcl 0.4 Mg Cap Administered 04/29/22 00:26 Dose 0.4 mg .ROUTE .STK-MED ONE Intake & Output (Last 24 hours) 04/27/22 04/28/22 04/29/22 04/30/22 11:59 11:59 11:59 11:59 Intake Total 1166 4851 Balance 1166 4851 Weight 103.3 kg Orders (Last 24 hours) Category Date Time Status NPO Diet 05/01/22 00:01 Active Gabapentin [Neurontin ] Med 04/29/22 22:00 Active 600 mg PO HS Ibuprofen 600 mg [Motrin 600 mg] Med 04/29/22 10:00 Active 600 mg PO TID Levofloxacin [Levofloxacin 500MG/100ML D5W] Med 04/29/22 22:00 Active 500 mg in 100 ml IV Q24H22 Tamsulosin HCl 0.4 mg [Flomax 0.4 MG] Med 04/29/22 22:00 Active 0.4 mg PO HS Patient Care Notes (Last 24 hours) 04/29/22 17:41 Nursing Note by Fannie Felix in to see pt. states that he will re-evaluate may and possible surgically intervene at that time. Pt will be NPO at midnight on Saturday just in case. order entered. Initialized on 04/29/22 17:41 - END OF NOTE 04/29/22 10:17 Nursing Note by Annmarie Schmitt I called surgery consult to 's answering service and awaiting a raquel back at this time. Initialized on 04/29/22 10:17 - END OF NOTE Code(s): L03.113 - CELLULITIS OF RIGHT UPPER LIMB
[2022-04-30] MEDS: Hydromorphone 1 mg/ml Injection IV PRN ×2 (09:28→19:47)
[2022-04-30] MEDS: MOTRIN 600 MG PO SCH ×3 (09:28→22:10)
[2022-04-30] MEDS: NEURONTIN PO SCH (22:09)
[2022-04-30] MEDS: Levofloxacin 500MG/100ML D5W 500 MG/100 ML BAG IV SCH (22:14)
[2022-04-30] MEDS: Flomax 0.4 MG PO SCH (22:16)
[2022-05-01] MEDS: Sodium Chloride 0.9% 1000 ML 1,000 ML IV SCH ×2 (02:30→13:36)
[2022-05-01 07:16] LABS: Hematocrit 44.1 % (42-50); Hemoglobin 14.6 g/dL (12.5-18.0); Mean Corpuscular Hemoglobin 29.8 pg (26-32); Mean Corpuscular Hgb Concent. 33.1 g/dL (32-36); Mean Platelet Volume 8.5 fL (7.5-11.0); Platelet Count 382 x10^3/uL (150-450); Red Cell Distribution Width 13.1 % (11.5-14.0); White Blood Count 11.7 x10^3/uL (4.0-10.5)
[2022-05-01 07:28] VITALS: O2SAT 98
--- NOTE | 2022-05-01 07:43 | CONS ---
CONSULT DATE: 04/29/2022 REASON FOR CONSULT: Cellulitis abscess of the right elbow. HISTORY: The patient is in with a very inflamed right elbow. He raises up and has a 6 inch area of surrounding erythema. He had some puss and fullness of the olecranon bursa. He states that he rammed it up against something and it was just fine for a while and dried up and then it did this. He certainly has gotten his elbow olecranon bursa infected. He is on IV antibiotics for Staph. He is getting better. Yesterday was Saturday and today is Day. There is some considerations of draining this once it becomes a little more localized. He is quite agreeable to this. We have made him NPO after midnight for Saturday night for possibility of draining this on Saturday. We will inspect to see how this is doing on Saturday.
[2022-05-01] MEDS ORDERED: PHARMACY DOSING REQUIRED: VANCOMYCIN IV STA (08:01)
[2022-05-01] MEDS ORDERED: BENADRYL 50 MG/ML IV PRN (08:01)
[2022-05-01] MEDS: MOTRIN 600 MG PO SCH ×2 (09:51→15:46)
[2022-05-01] MEDS ORDERED: VANCOMYCIN 2 GRAM/400 ML BAG 2 GM/400 ML PIGGYBACK IV SCH (10:00)
--- NOTE | 2022-05-01 13:14 | PCM.NOTE ---
Date and Time: 05/01/22 1313 Subjective Assessment: still purulent discharge from right elbow - Review of Systems Constitutional: No Fever, No Chills Eyes: No Symptoms Ears, Nose, & Throat: No Symptoms Respiratory: No Cough, No Short Of Breath Cardiac: No Chest Pain, No Edema, No Syncope Abdominal/Gastrointestinal: No Abdominal Pain, No Nausea, No Vomiting, No Diarrhea Genitourinary Symptoms: No Dysuria Musculoskeletal: Joint Redness, Joint Swelling, No Back Pain, No Neck Pain Skin: No Rash Neurological: No Dizziness, No Focal Weakness, No Sensory Changes Psychological: No Symptoms Endocrine: No Symptoms Hematologic/Lymphatic: No Symptoms Immunological/Allergic: No Symptoms Objective Exam General Appearance: no apparent distress, alert Neurologic Exam: alert, oriented x 3, cooperative, normal mood/affect, nml cerebellar function, sensation nml, No motor deficits Skin Exam: normal color, warm, dry Wound Assessment: Skin/Wound Assessment Wound/Incision Assessment Start: 05/01/22 01:49 Text: Status: Active Freq: Protocol: Document 05/01/22 01:49 DANNI (Rec: 05/01/22 01:53 DANNI [id number]) Wound/Incision Assessment Right Elbow Wound Assessment Shift Assessment Wound Type cellulitis Wound Stage Non Pressure Wound Drainage Amount Moderate Drainage Description Purulent Drainage Odor None/Absent General Appearance Open to air Surrounding Tissue Dark Red,Taut,Edematous Comment Open and draining, purulent drainage Wound Photo Photo Taken No Eye Exam: PERRL, EOMI, eyes nml inspection Ears, Nose, Throat Exam: normal ENT inspection, pharynx normal, moist mucous membranes Neck Exam: normal inspection, non-tender, supple, full range of motion Respiratory Exam: normal breath sounds, lungs clear, No respiratory distress Cardiovascular Exam: regular rate/rhythm, normal heart sounds Gastrointestinal/Abdomen Exam: soft, No tenderness, No mass Extremity Exam: normal inspection, normal range of motion, inflammation, swelling Back Exam: normal inspection, normal range of motion, No CVA tenderness, No v ertebral tenderness Male Genitalia Exam: deferred Rectal Exam: deferred OBJECTIVE DATA Vital Signs: Vital Signs - 24 hr Temp Pulse Resp BP Pulse Ox 05/01/22 12:00 98.4 F 80 15 120/81 98 05/01/22 07:27 98.2 F 95 H 16 127/94 98 05/01/22 03:57 97.7 F 91 H 18 169/89 99 04/30/22 23:00 97.5 F 92 H 16 148/89 97 04/30/22 19:36 97.8 F 90 16 137/89 94 L 04/30/22 16:00 97.8 F 93 H 16 140/78 97 Pain Assessment - Last Documented Pain Intensity 4 Pain Scale [facility] Intake and Output: Intake & Output 04/29/22 04/30/22 05/01/22 05/02/22 11:59 11:59 11:59 11:59 Intake Total 1166 4851 4309 Balance 1166 4851 4309 Weight 103.3 kg Lab Results: Lab Results-Last 24 Hours 05/01/22 Range/Units 07:00 WBC 11.7 H (4.0-10.5) x10^3/uL RBC 4.90 (4.1-5.6) x10^6/uL Hgb 14.6 (12.5-18.0) g/dL Hct 44.1 (42-50) % MCV 90.0 (78-100) fL MCH 29.8 (26-32) pg MCHC 33.1 (32-36) g/dL RDW 13.1 (11.5-14.0) % Plt Count 382 (150-450) x10^3/uL MPV 8.5 (7.5-11.0) fL Assessment/Plan (1) Cellulitis of right elbow Current Visit: Yes Status: Acute Assessment & Plan: Chief Complaint Diagnosis swelling of right elbow for 1 week Allergies Allergy/AdvReac Type Severity Reaction Status Date / Time No Known Drug Allergies Allergy Verified 04/28/22 20:23 Vital Signs (Last 24 hours) Temp Pulse Resp BP Pulse Ox 05/01/22 12:00 98.4 F 80 15 120/81 98 05/01/22 07:27 98.2 F 95 H 16 127/94 98 05/01/22 03:57 97.7 F 91 H 18 169/89 99 04/30/22 23:00 97.5 F 92 H 16 148/89 97 04/30/22 19:36 97.8 F 90 16 137/89 94 L 04/30/22 16:00 97.8 F 93 H 16 140/78 97 Home Medications Medication Instructions Recorded Confirmed Last Taken Type Gabapentin 600 mg PO HS 04/28/22 04/28/22 Unknown History Ibuprofen 600 mg PO TID 04/28/22 04/28/22 Unknown History Sulfamethoxazole/Trimethoprim 1 each PO Q12H 04/28/22 04/28/22 Unknown History [Sulfamethoxazole-Tmp Ds Tablet] Current Medications Generic Name Dose Route Start Last Admin Trade Name Jacobq PRN Reason Stop Dose Admin Acetaminophen 650 mg 04/28/22 22:27 Acetaminophen 325 Mg Tablet PO 05/28/22 22:26 Q4H PRN PRN PAIN, FEVER, HEADACHE Diphenhydramine HCl 25 mg 05/01/22 08:01 05/01/22 08:22 Diphenhydramine Hcl 50 Mg/Ml Vial IV 05/31/22 08:00 25 mg Q6H PRN PRN Administration ITCHING Gabapentin 600 mg 04/29/22 22:00 04/30/22 22:09 Gabapentin 300 Mg Capsule PO 05/29/22 21:59 600 mg HS ROSE MARY Administration Hydromorphone HCl 1 mg 04/28/22 22:27 04/30/22 19:47 Hydromorphone 1 Mg/1ml Inj 1 Mg/Ml Syringe IV 05/03/22 22:26 1 mg Q4H PRN PRN Administration PAIN Sodium Chloride 1,000 mls @ 100 mls/hr 04/28/22 22:27 05/01/22 02:30 Sodium Chloride 0.9% 1000 Ml IV 05/28/22 22:26 100 mls/hr .Q10H ROSE MARY Administration Vancomycin HCl 2 gm in 400 mls @ 200 mls/hr 05/01/22 10:00 05/01/22 09:53 Vancomycin 2 Gram/400 Ml Bag IV 05/31/22 09:59 200 mls/hr Q12HT ROSE MARY Administration Ibuprofen 600 mg 04/29/22 10:00 05/01/22 09:51 Ibuprofen 600 Mg Tablet PO 05/29/22 09:59 600 mg TID ROSE MARY Administration Ondansetron HCl 4 mg 04/28/22 22:27 Ondansetron Hcl 4 Mg/2 Ml Vial IV 05/28/22 22:26 Q6H PRN PRN NAUSEA/VOMITING Tamsulosin HCl 0.4 mg 04/29/22 22:00 09/05/22 22:16 Tamsulosin Hcl 0.4 Mg Cap PO 05/29/22 21:59 0.4 mg HS ROSE MARY Administration Discontinued Medications Generic Name Dose Route Start Last Admin Trade Name Greg PRMercy Reason Stop Dose Admin Gabapentin Confirm 04/29/22 00:24 Gabapentin 300 Mg Capsule Administered 04/29/22 00:25 Dose 600 mg .ROUTE .STK-MED ONE Hydromorphone HCl 1 mg 04/28/22 20:46 04/28/22 21:05 Hydromorphone 1 Mg/1ml Inj 1 Mg/Ml Syringe IV 04/28/22 20:47 1 mg STAT ONE Administration Hydromorphone HCl Confirm 04/28/22 20:59 Hydromorphone 1 Mg/1ml Inj 1 Mg/Ml Syringe Administered 04/28/22 21:00 Dose 1 mg .ROUTE .STK-MED ONE Sodium Chloride 1,000 mls @ 999 mls/hr 04/28/22 20:46 04/28/22 21:03 Sodium Chloride 0.9% 1000 Ml IV 04/28/22 21:46 999 mls/hr .Q1H1M STA Administration Levofloxacin/Dextrose 750 mg in 150 mls @ 100 mls/hr 04/28/22 20:46 04/28/22 21:05 Levofloxacin 750mg/150ml D5w IV 04/28/22 22:15 100 mls/hr STAT STA 100 mls/hr Administration Sodium Chloride Confirm 04/28/22 20:59 Sodium Chloride 0.9% 1000 Ml Administered 04/28/22 21:00 Dose 1,000 mls @ ud .ROUTE .STK-MED ONE Levofloxacin/Dextrose Confirm 04/28/22 20:59 Levofloxacin 750mg/150ml D5w Administered 04/28/22 21:00 Dose 750 mg in 150 mls @ ud IV .STK-MED ONE Levofloxacin/Dextrose 500 mg in 100 mls @ 100 mls/hr 04/29/22 22:00 04/30/22 22:14 Levofloxacin 500mg/100ml D5w IV 05/29/22 21:59 100 mls/hr Q24H22 ROSE MARY Administration Non-Formulary Medication 1 each 05/01/22 08:01 Pharmacy Dose Request: Vancomycin 1 Each IV 05/01/22 08:02 STAT STA Ondansetron HCl 4 mg 04/28/22 20:46 04/28/22 21:02 Ondansetron Hcl 4 Mg/2 Ml Vial IV 04/28/22 20:47 4 mg STAT STA Administration Ondansetron HCl 4 mg 04/28/22 20:46 04/28/22 20:50 Ondansetron Hcl 4 Mg/2 Ml Vial IV 04/28/22 20:47 Not Given STAT ONE Ondansetron HCl Confirm 04/28/22 20:58 Ondansetron Hcl 4 Mg/2 Ml Vial Administered 04/28/22 20:59 Dose 4 mg .ROUTE .STK-MED ONE Tamsulosin HCl Confirm 04/29/22 00:25 Tamsulosin Hcl 0.4 Mg Cap Administered 04/29/22 00:26 Dose 0.4 mg .ROUTE .STK-MED ONE Intake & Output (Last 24 hours) 04/29/22 04/30/22 05/01/22 05/02/22 11:59 11:59 11:59 11:59 Intake Total 1166 4851 4309 Balance 1166 4851 4309 Weight 103.3 kg Microbiology Results (Last 24 hours) 04/28/22 21:02 Blood Blood Culture Gram Stain - Pending 04/28/22 21:02 Blood Blood Culture - Preliminary NO GROWTH TO DATE 04/28/22 20:56 Blood Blood Culture Gram Stain - Pending 04/28/22 20:56 Blood Blood Culture - Preliminary NO GROWTH TO DATE Laboratory Results (Last 24 hours) 05/01/22 07:00 WBC 11.7 H RBC 4.90 Hgb 14.6 Hct 44.1 MCV 90.0 MCH 29.8 MCHC 33.1 RDW 13.1 Plt Count 382 MPV 8.5 Orders (Last 24 hours) Category Date Time Status House Regular Diet Diet 05/01/22 Lunch Active CBC Routine Lab 05/01/22 07:00 Completed Vancomycin, [facility] 05/02/22 21:30 Ordered Diphenhydramine HCl 50 mg/ml [Benadryl 50 mg/ml] Med 05/01/22 08:01 Active 25 mg IV Q6H PRN PRN Pharmacy Dose Request: Vancomy [Pharmacy Dosing Med 05/01/22 08:01 Discontinued Required: Vancomycin] 1 each IV STAT STA Vancomycin/Water For Inj (Peg) [Vancomycin 2 Gram/400 Med 05/01/22 10:00 Active ml Bag] 2 gm in 400 ml IV Q12HT Patient Care Notes (Last 24 hours) 05/01/22 12:46 Nursing Note by Henna Bettencourt CALLED AND SPOKE WITH DR Vera PEACE ABOUT PATIENT. STATES HE CAN RESUME PREVIOUS DIET AT THIS TIME AND HE WILL BE HERE TO ROUND AFTER OFFICE HOURS Initialized on 05/01/22 12:46 - END OF NOTE 05/01/22 12:18 Nursing Note by Nadira Hadley SILO WORKER, ROUNDED WITH DR NEWTON. STATES TO SEE WHAT SURGERY SAYS ABOUT ELBOW WOUND, CONTINUE VANCOMYCIN, WATCH RASH FROM LEVAQUIN REACTION AND REPORT ANY C HANGES. IF NO SURGERY NEEDED, WILL NEED TO D/C WITH DAILY [facility] OUTAPTIENT INFUSION FOR 14 DAYS. Initialized on 05/01/22 12:18 - END OF NOTE 05/01/22 08:05 Nursing Note by Henna Bettencourt Patient has new areas of erythema on left upper arm and on right lower quadrant of abdomen this morning. Called Dr Newton to inform him. New order to change antibiotic and can give benadryl Q6H prn Initialized on 05/01/22 08:05 - END OF NOTE Code(s): L03.113 - CELLULITIS OF RIGHT UPPER LIMB
[2022-05-01] MEDS: Hydromorphone 1 mg/ml Injection IV PRN ×2 (15:47→20:21)
[2022-05-01 20:19] VITALS: BP 144/91; PULSE 92
[2022-05-01 21:11] LABS: INR 1.04 (0.8-3.0)
--- NOTE | 2022-05-02 07:43 | PROG NOTE ---
HISTORY: Hawk Ram was seen on Saturday by myself. He had an infected right elbow with substantial cellulitis. His cellulitis has improved. His abscess spontaneously drained at olecranon bursa. To date his arm looks much better. It is decreased diameter, decreased cellulitis and there is just a little drainage from the opening at the elbow. He did have a rash from the antibiotics. The antibiotic has been changed. The antibiotic rash is fairly substantial, diffuse rash involving both arms. I think it is the antibiotics. So far the culture is not growing anything. I think his arm is doing much better. He probably could go home with IV antibiotics and a PICC line. I am not sure that there is going to be a specific origin needless to say. We will be glad to see him in the office in follow up.
--- NOTE | 2022-05-02 20:43 | PCM.DS ---
Discharge Summary Date of Admission: 04/29/22 08:46 Admitting Physician: REAL NEWTON Consults: Consults on Case 04/29/22 08:17 Consult Surgery ROUTINE Primary Care Provider: SALINA GARCIAS Allergies Allergies levofloxacin [From Levaquin] Allergy (Intermediate, Verified 05/02/22 13:22) Rash Hospital Summary - Hospital Course Hospital Course: Chief Complaint Diagnosis CELLULITIS OF ELBOW Allergies Allergy/AdvReac Type Severity Reaction Status Date / Time levofloxacin [From Levaquin] Allergy Intermediate Rash Verified 05/02/22 13:22 Home Medications Medication Instructions Recorded Confirmed Last Taken Type Gabapentin 600 mg PO HS 04/28/22 04/28/22 Unknown History Ibuprofen 600 mg PO TID 04/28/22 04/28/22 Unknown History Current Medications Discontinued Medications Generic Name Dose Route Start Last Admin Trade Name Freq PRN Reason Stop Dose Admin Acetaminophen 650 mg 04/28/22 22:27 Acetaminophen 325 Mg Tablet PO 05/28/22 22:26 Q4H PRN PRN PAIN, FEVER, HEADACHE Diphenhydramine HCl 25 mg 05/01/22 08:01 05/01/22 08:22 Diphenhydramine Hcl 50 Mg/Ml Vial IV 05/31/22 08:00 25 mg Q6H PRN PRN Administration ITCHING Gabapentin 600 mg 04/29/22 22:00 04/30/22 22:09 Gabapentin 300 Mg Capsule PO 05/29/22 21:59 600 mg HS ROSE MARY Administration Gabapentin Confirm 04/29/22 00:24 Gabapentin 300 Mg Capsule Administered 04/29/22 00:25 Dose 600 mg .ROUTE .STK-MED ONE Hydromorphone HCl 1 mg 04/28/22 20:46 04/28/22 21:05 Hydromorphone 1 Mg/1ml Inj 1 Mg/Ml Syringe IV 04/28/22 20:47 1 mg STAT ONE Administration Hydromorphone HCl Confirm 04/28/22 20:59 Hydromorphone 1 Mg/1ml Inj 1 Mg/Ml Syringe Administered 04/28/22 21:00 Dose 1 mg .ROUTE .STK-MED ONE Hydromorphone HCl 1 mg 04/28/22 22:27 05/01/22 20:21 Hydromorphone 1 Mg/1ml Inj 1 Mg/Ml Syringe IV 05/03/22 22:26 1 mg Q4H PRN PRN Administration PAIN Sodium Chloride 1,000 mls @ 999 mls/hr 04/28/22 20:46 04/28/22 21:03 Sodium Chloride 0.9% 1000 Ml IV 04/28/22 21:46 999 mls/hr .Q1H1M STA Administration Levofloxacin/Dextrose 750 mg in 150 mls @ 100 mls/hr 04/28/22 20:46 04/28/22 21:05 Levofloxacin 750mg/150ml D5w IV 04/28/22 22:15 100 mls/hr STAT STA 100 mls/hr Administration Sodium Chloride Confirm 04/28/22 20:59 Sodium Chloride 0.9% 1000 Ml Administered 04/28/22 21:00 Dose 1,000 mls @ ud .ROUTE .STK-MED ONE Levofloxacin/Dextrose Confirm 04/28/22 20:59 Levofloxacin 750mg/150ml D5w Administered 04/28/22 21:00 Dose 750 mg in 150 mls @ ud IV .STK-MED ONE Sodium Chloride 1,000 mls @ 100 mls/hr 04/28/22 22:27 05/01/22 13:36 Sodium Chloride 0.9% 1000 Ml IV 05/28/22 22:26 100 mls/hr .Q10H ROSE MARY Administration Levofloxacin/Dextrose 500 mg in 100 mls @ 100 mls/hr 04/29/22 22:00 04/30/22 22:14 Levofloxacin 500mg/100ml D5w IV 05/29/22 21:59 100 mls/hr Q24H22 ROSE MARY Administration Vancomycin HCl 2 gm in 400 mls @ 200 mls/hr 05/01/22 10:00 05/01/22 09:53 Vancomycin 2 Gram/400 Ml Bag IV 05/31/22 09:59 200 mls/hr Q12HT ROSE MARY Administration Ibuprofen 600 mg 04/29/22 10:00 05/01/22 15:46 Ibuprofen 600 Mg Tablet PO 05/29/22 09:59 600 mg TID ROSE MARY Administration Non-Formulary Medication 1 each 05/01/22 08:01 Pharmacy Dose Request: Vancomycin 1 Each IV 05/01/22 08:02 STAT STA Ondansetron HCl 4 mg 04/28/22 20:46 04/28/22 21:02 Ondansetron Hcl 4 Mg/2 Ml Vial IV 04/28/22 20:47 4 mg STAT STA Administration Ondansetron HCl 4 mg 04/28/22 20:46 04/28/22 20:50 Ondansetron Hcl 4 Mg/2 Ml Vial IV 04/28/22 20:47 Not Given STAT ONE Ondansetron HCl Confirm 04/28/22 20:58 Ondansetron Hcl 4 Mg/2 Ml Vial Administered 04/28/22 20:59 Dose 4 mg .ROUTE .STK-MED ONE Ondansetron HCl 4 mg 04/28/22 22:27 Ondansetron Hcl 4 Mg/2 Ml Vial IV 05/28/22 22:26 Q6H PRN PRN NAUSEA/VOMITING Tamsulosin HCl 0.4 mg 04/29/22 22:00 04/30/22 22:16 Tamsulosin Hcl 0.4 Mg Cap PO 05/29/22 21:59 0.4 mg HS ROSE MARY Administration Tamsulosin HCl Confirm 04/29/22 00:25 Tamsulosin Hcl 0.4 Mg Cap Administered 04/29/22 00:26 Dose 0.4 mg .ROUTE .STK-MED ONE Intake & Output (Last 24 hours) 04/30/22 05/01/22 05/02/22 05/03/22 11:59 11:59 11:59 11:59 Intake Total 4851 4309 2706 Balance 4851 4309 2706 Microbiology Results (Last 24 hours) 04/28/22 20:21 Elbow - Right Wound Culture - Final Staphylococcus Aureus Laboratory Results (Last 24 hours) 05/01/22 05/01/22 20:42 20:15 PT 11.0 INR 1.04 APTT 25.5 Orders (Last 24 hours) Category Date Time Status Discharge Routine Discharge 05/01/22 20:00 Ordered PROTIME WITH INR Routine Lab 05/01/22 20:15 Completed PTT Stat Lab 05/01/22 20:42 Completed - Vitals & Intake/Output Vital Signs: Vital Signs Temperature 98.2 F 05/01/22 20:00 Pulse Rate 92 H 05/01/22 20:00 Respiratory Rate 20 05/01/22 20:00 Blood Pressure 144/91 05/01/22 20:00 O2 Sat by Pulse Oximetry 98 05/01/22 20:00 Intake & Output: Intake & Output 04/30/22 05/01/22 05/02/22 05/03/22 11:59 11:59 11:59 11:59 Intake Total 4856 8010 5111 Balance 4851 430 2704 - Lab Result Diagrams: 05/01/22 07:00 04/29/22 05:47 Lab Results-Last 24 Hrs: Lab Results-Last 24 Hours 05/01/22 05/01/22 Range/Units 20:15 20:42 PT 11.0 (9.4-12.5) SECONDS INR 1.04 (0.8-3.0) APTT 25.5 (25.1-36.5) SECONDS Micro Results-Entire Visit: Microbiology 04/28/22 20:21 Wound Culture - Final Elbow - Right Staphylococcus Aureus 04/28/22 21:02 Blood Culture - Preliminary Blood NO GROWTH TO DATE 04/28/22 20:56 Blood Culture - Preliminary Blood NO GROWTH TO DATE - Procedures and Test Procedures and Tests throughout Hospitalization: Therapy Orders & Screens 04/28/22 23:19 OT Screen per Nursing Assess ONCE Comment: Protocol Order Physician Instructions: Greater than 3 points order OT Admission Screening Reason For Exam: Triggered on Admission Diagnosis: Cellulitis right elbow Open Wound/Cellutlitis/Pressure Ulcers: Yes Acute Fx/ORIF/Change in wt bearing status: No Severe MUSCULOSKELETAL pain: No ADL Dysfunction: No Acute CVA w/Hemiparesis/Hemiplegia: No Decreased Functional Mobility/Strength: No Sprain/Strain: No Acute Post-op Mobility Dysfunction: No Total Points: 5 PT Screen per Nursing Assess ONCE Comment: Protocol Order Physician Instructions: Greater than 3 points order PT Admission Screenin Reason For Exam: Triggered on Admission Diagnosis: Cellulitis right elbow Open Wound/Cellutlitis/Pressure Ulcers: Yes Acute Fx/ORIF/Change in wt bearing status: No Severe MUSCULOSKELETAL pain: No ADL Dysfunction: No Acute CVA w/Hemiparesis/Hemiplegia: No Decreased Functional Mobility/Strength: No Sprain/Strain: No Acute Post-op Mobility Dysfunction: No Total Points: 5 Discharge Exam General Appearance: no apparent distress, alert Neurologic Exam: alert, oriented x 3, cooperative, normal mood/affect, nml cerebellar function, sensation nml, No motor deficits Eye Exam: PERRL, EOMI, eyes nml inspection Ears, Nose, Throat Exam: normal ENT inspection, pharynx normal, moist mucous membranes Neck Exam: normal inspection, non-tender, supple, full range of motion Respiratory Exam: normal breath sounds, lungs clear, No respiratory distress Cardiovascular Exam: regular rate/rhythm, normal heart sounds Gastrointestinal/Abdomen Exam: soft, No tenderness, No mass Male Genitalia Exam: deferred Rectal Exam: deferred Back Exam: normal inspection, normal range of motion, No CVA tenderness, No vertebral tenderness Extremity Exam: normal inspection, normal range of motion Skin Exam: normal color, warm, dry Final Diagnosis/Problem List - Final Discharge Diagnosis/Problem (1) Cellulitis of right elbow Status: Acute Assessment & Plan: Chief Complaint Diagnosis CELLULITIS OF ELBOW Allergies Allergy/AdvReac Type Severity Reaction Status Date / Time [facility] [[facility]] Allergy Intermediate Rash Verified 05/02/22 13:22 Home Medications Medication Instructions Recorded Confirmed Last Taken Type Gabapentin 600 mg PO HS 04/28/22 04/28/22 Unknown History Ibuprofen 600 mg PO TID 04/28/22 04/28/22 Unknown History Current Medications Discontinued Medications Generic Name Dose Route Start Last Admin Trade Name Freq PRN Reason Stop Dose Admin Acetaminophen 650 mg 04/28/22 22:27 Acetaminophen 325 Mg Tablet PO 05/28/22 22:26 Q4H PRN PRN PAIN, FEVER, HEADACHE Diphenhydramine HCl 25 mg 05/01/22 08:01 05/01/22 08:22 Diphenhydramine Hcl 50 Mg/Ml Vial IV 05/31/22 08:00 25 mg Q6H PRN PRN Administration ITCHING Gabapentin 600 mg 04/29/22 22:00 04/30/22 22:09 Gabapentin 300 Mg Capsule PO 05/29/22 21:59 600 mg HS ROSE MARY Administration Gabapentin Confirm 04/29/22 00:24 Gabapentin 300 Mg Capsule Administered 04/29/22 00:25 Dose 600 mg .ROUTE .STK-MED ONE Hydromorphone HCl 1 mg 04/28/22 20:46 04/28/22 21:05 Hydromorphone 1 Mg/1ml Inj 1 Mg/Ml Syringe IV 04/28/22 20:47 1 mg STAT ONE Administration Hydromorphone HCl Confirm 04/28/22 20:59 Hydromorphone 1 Mg/1ml Inj 1 Mg/Ml Syringe Administered 04/28/22 21:00 Dose 1 mg .ROUTE .STK-MED ONE Hydromorphone HCl 1 mg 04/28/22 22:27 05/01/22 20:21 Hydromorphone 1 Mg/1ml Inj 1 Mg/Ml Syringe IV 05/03/22 22:26 1 mg Q4H PRN PRN Administration PAIN Sodium Chloride 1,000 mls @ 999 mls/hr 04/28/22 20:46 04/28/22 21:03 Sodium Chloride 0.9% 1000 Ml IV 04/28/22 21:46 999 mls/hr .Q1H1M STA Administration Levofloxacin/Dextrose 750 mg in 150 mls @ 100 mls/hr 04/28/22 20:46 04/28/22 21:05 Levofloxacin 750mg/150ml D5w IV 04/28/22 22:15 100 mls/hr STAT STA 100 mls/hr Administration Sodium Chloride Confirm 04/28/22 20:59 Sodium Chloride 0.9% 1000 Ml Administered 04/28/22 21:00 Dose 1,000 mls @ ud .ROUTE .STK-MED ONE Levofloxacin/Dextrose Confirm 04/28/22 20:59 Levofloxacin 750mg/150ml D5w Administered 04/28/22 21:00 Dose 750 mg in 150 mls @ ud IV .STK-MED ONE Sodium Chloride 1,000 mls @ 100 mls/hr 04/28/22 22:27 05/01/22 13:36 Sodium Chloride 0.9% 1000 Ml IV 05/28/22 22:26 100 mls/hr .Q10H ROSE MARY Administration Levofloxacin/Dextrose 500 mg in 100 mls @ 100 mls/hr 04/29/22 22:00 04/30/22 22:14 Levofloxacin 500mg/100ml D5w IV 05/29/22 21:59 100 mls/hr Q24H22 ROSE MARY Administration Vancomycin HCl 2 gm in 400 mls @ 200 mls/hr 05/01/22 10:00 05/01/22 09:53 Vancomycin 2 Gram/400 Ml Bag IV 05/31/22 09:59 200 mls/hr Q12HT ROSE MARY Administration Ibuprofen 600 mg 04/29/22 10:00 05/01/22 15:46 Ibuprofen 600 Mg Tablet PO 05/29/22 09:59 600 mg TID ROSE MARY Administration Non-Formulary Medication 1 each 05/01/22 08:01 Pharmacy Dose Request: Vancomycin 1 Each IV 05/01/22 08:02 STAT STA Ondansetron HCl 4 mg 04/28/22 20:46 04/28/22 21:02 Ondansetron Hcl 4 Mg/2 Ml Vial IV 04/28/22 20:47 4 mg STAT STA Administration Ondansetron HCl 4 mg 04/28/22 20:46 04/28/22 20:50 Ondansetron Hcl 4 Mg/2 Ml Vial IV 04/28/22 20:47 Not Given STAT ONE Ondansetron HCl Confirm 04/28/22 20:58 Ondansetron Hcl 4 Mg/2 Ml Vial Administered 04/28/22 20:59 Dose 4 mg .ROUTE .STK-MED ONE Ondansetron HCl 4 mg 04/28/22 22:27 Ondansetron Hcl 4 Mg/2 Ml Vial IV 05/28/22 22:26 Q6H PRN PRN NAUSEA/VOMITING Tamsulosin HCl 0.4 mg 04/29/22 22:00 04/30/22 22:16 Tamsulosin Hcl 0.4 Mg Cap PO 05/29/22 21:59 0.4 mg HS ROSE MARY Administration Tamsulosin HCl Confirm 04/29/22 00:25 Tamsulosin Hcl 0.4 Mg Cap Administered 04/29/22 00:26 Dose 0.4 mg .ROUTE .STK-MED ONE Intake & Output (Last 24 hours) 04/30/22 05/01/22 05/02/22 05/03/22 11:59 11:59 11:59 11:59 Intake Total 4851 4309 2706 Balance 4851 4309 2706 Microbiology Results (Last 24 hours) 04/28/22 20:21 Elbow - Right Wound Culture - Final Staphylococcus Aureus Laboratory Results (Last 24 hours) 05/01/22 05/01/22 20:42 20:15 PT 11.0 INR 1.04 APTT 25.5 Orders (Last 24 hours) Category Date Time Status Discharge Routine Discharge 05/01/22 20:00 Ordered PROTIME WITH INR Routine Lab 05/01/22 20:15 Completed PTT Stat Lab 05/01/22 20:42 Completed Code(s): L03.113 - CELLULITIS OF RIGHT UPPER LIMB - Discharge Discharge Date: 05/01/22 Disposition: Home, Self-Care Condition: Stable Prescriptions: No Action Tamsulosin HCl 0.4 mg [Flomax 0.4 MG] 0.4 mg PO HS Gabapentin 600 mg PO HS Ibuprofen 600 mg PO TID Daptomycin [Cubicin Rf] 500 mg IV DAILY Instructions: Peripherally-Inserted Central Catheter, Cellulitis (Skin Infection), Adult (DC), What You Should Know About Antibiotics Follow up with: SALINA GARCIAS [Primary Care Provider] - LIDA PEACE MD [ACTIVE STAFF] - Forms: Discharge Instructions, Outpatient Follow-up Labs/Proc
== END 2022-05-01 21:16 | disposition home or self-care (01) | DRG 603 ==
LOC: ED 19:48 → MED SURG 22:20 → OBSVTOIN 04-29 08:46 → MED SURG 04-29 22:20
PROVIDERS: ADMIT General Practice; ATTEND General Practice
DX: L03.113 Cellulitis of right upper limb (principal); I10 Essential (primary) hypertension; Z79.899 Other long term (current) drug therapy; Z20.828 Contact with and (suspected) exposure to other viral communicable diseases
CPT/HCPCS: 0241U; 36000; 36415; 80053; 83605; 85025; 85027; 85610; 85730; 87040; 87070; 87077; 87186; 96365; 96374; 96375; 99285; G0378; J1170; J1200; J1956; J2405; A9270-GY; J3370

== ENCOUNTER 2022-05-03 09:35 | Emergency (ER) | payer BC ==
--- NOTE | 2022-05-03 10:31 | ERPHSYRPT ---
- History of Present Illness Time Seen by Provider: 05/03/22 09:59 Source: patient Exam Limitations: no limitations Patient Subjective Stated Complaint: pt sent down from infusion center for hypertension. pt is getting infusion for cellulitis right arm , he as not been taking b/p meds for 2 weeks Triage Nursing Assessment: pt arrived per wc. alert, resp easy, skin has rash from antiboitc reaction this wee, has redness and swelling to right elbow, with small amt of drainage, bandage applied Physician History: 62 years old male with history of hypertension is sent in ER from infusion center with elevated blood pressure 160/100. Patient is supposed to be on metoprolol but has not been taking for the last couple of weeks. Patient states he takes it only with the diet pill because it increases his blood pressure. He denies any chest pain palpitations or shortness of breath. No abdominal pain nausea or vomiting. Repeat blood pressure is in 150s. Timing/Duration: today Severity: moderate Associated Symptoms: rash, No vomiting, No abdominal pain, No shortness of breath, No heartburn, No diaphoresis, No cough, No chest pain, No fever, No headaches, No loss of appetite, No syncope, No seizure, No weakness Allergies/Adverse Reactions: levofloxacin [From Levaquin] Allergy (Intermediate, Verified 05/03/22 09:53) Rash Home Medications: Tamsulosin HCl 0.4 mg [Flomax 0.4 MG] 0.4 mg PO HS 08/31/15 [History] Gabapentin 600 mg PO HS 04/28/22 [History] Ibuprofen 600 mg PO TID 04/28/22 [History] Daptomycin [Cubicin Rf] 500 mg IV DAILY 05/02/22 [History] Hx Tetanus, Diphtheria Vaccination/Date Given: No Hx Influenza Vaccination/Date Given: No Hx Pneumococcal Vaccination/Date Given: No Immunizations Up to Date: Yes Travel Risk - International Travel Have you traveled outside of the country in past 3 weeks: No - Coronavirus Screening Are you exhibiting any of the following symptoms?: No Close contact with a COVID-19 positive Pt in past 14-21 Days: No - Vaccine Status Have you recieved a Covid-19 vaccination: No - Review of Systems Constitutional: No Symptoms Eyes: No Symptoms Ears, Nose, & Throat: No Symptoms Respiratory: No Symptoms Cardiac: No Symptoms Abdominal/Gastrointestinal: No Symptoms Genitourinary Symptoms: No Symptoms Skin: Skin Lesions Neurological: No Symptoms Psychological: No Symptoms Endocrine: No Symptoms Hematologic/Lymphatic: No Symptoms Immunological/Allergic: No Symptoms - Past Medical History Pertinent Past Medical History: Yes Neurological History: No Pertinent History ENT History: No Pertinent History Cardiac History: Hypertension Respiratory History: No Pertinent History Endocrine Medical History: No Pertinent History Musculoskeletal History: Arthritis, Degenerative Disk Disease GI Medical History: GERD History: No Pertinent History Psycho-Social History: No Pertinent History Male Reproductive Disorders: Prostate Problems Other Medical History: pt reports he was kicked by a horse in the left side 30 years ago and damaged his left kidney has not been aware of any jail problems - Past Surgical History Past Surgical History: Yes Neuro Surgical History: No Pertinent History Cardiac: No Pertinent History Respiratory: No Pertinent History Gastrointestinal: Cholecystectomy Genitourinary: No Pertinent History Musculoskeletal: Orthopedic Surgery Male Surgical History: No Pertinent History Other Surgical History: COLONOSCOPY , broken collar bone years ago - Social History Smoking Status: Former smoker Exposure to second hand smoke: No Drug Use: none Patient Lives Alone: No - Nursing Vital Signs Nursing Vital Signs: Initial Vital Signs Temperature 97.6 F 05/03/22 09:44 Pulse Rate 90 05/03/22 09:44 Respiratory Rate 18 05/03/22 09:44 Blood Pressure 160/100 05/03/22 09:44 O2 Sat by Pulse Oximetry 97 05/03/22 09:44 Pain Scale Pain Intensity 3 - Physical Exam General Appearance: no apparent distress, alert Eye Exam: PERRL/EOMI, eyes nml inspection Ears, Nose, Throat Exam: normal ENT inspection, TMs normal, pharynx normal, moist mucous membranes Neck Exam: normal inspection, non-tender, supple, full range of motion Respiratory Exam: normal breath sounds, lungs clear Cardiovascular Exam: regular rate/rhythm, normal heart sounds Gastrointestinal/Abdomen Exam: soft, No tenderness Back Exam: normal inspection, normal range of motion Extremity Exam: normal range of motion, inflammation (Right elbow), joint swelling, swelling Neurologic Exam: alert, oriented x 3, cooperative, 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 He is advised to go home and restart taking metoprolol which he is on, keep a log and follow-up with primary care. Do not think needs any other work-up and is stable for discharge with outpatient follow-up. Discussed signs symptoms of uncontrolled hypertension needing return to ER which he seems understanding. Counseled pt/family regarding: diagnosis, need for follow-up - Departure Departure Disposition: Home Clinical Impression: Uncontrolled hypertension Condition: Stable Critical Care Time: No Referrals: SALINA GARCIAS [Primary Care Provider] - Follow up/PCP as directed (1-2-day for appointment for reevaluation) Instructions: Malignant Hypertension (DC) Additional Instructions: Take low-salt diet. Regular exercise. Take your metoprolol regularly, keep a log of your blood pressure and follow-up with primary care for reevaluation. Return to ER for uncontrolled hypertension, having blurry vision, chest pain palpitations, headache, abdominal pain etc.
[2022-05-03 10:43] VITALS: BP 155/74; PULSE 74; O2SAT 95
== END 2022-05-03 10:44 | disposition home or self-care (01) ==
LOC: ED 09:35
DX: I10 Essential (primary) hypertension (principal); Z79.899 Other long term (current) drug therapy; Z28.310 Unvaccinated for COVID-19
CPT/HCPCS: 99281